=== PATIENT | female | born 1965 | race Caucasian/White ===

== ENCOUNTER 2020-08-01 12:23 | Emergency (ER) | payer OTHER, SELFPAY ==
[2020-08-01 12:26] VITALS: BP 139/87; PULSE 88; RESP 18; TEMP 36.7; O2SAT 99; BMI 32.3
--- NOTE | 2020-08-01 12:40 | DI.RAD.S_ITS ---
PROCEDURE: XR CHEST 2V INDICATIONS: chest tightness, cough TECHNIQUE: 2 views of the chest were acquired. COMPARISON: None. FINDINGS: Surgical changes and devices: None. Lungs and pleura: Lungs are clear. No pleural effusions or pneumothorax. Mediastinum: Mediastinal contours are normal. Heart size is normal. Bones and chest wall: No suspicious bony abnormalities. Soft tissues appear unremarkable. IMPRESSION: 1. No acute cardiopulmonary disease. Dictated by: Gagan Rios M.D. on 08/01/2020 at 12:12 Approved by: Gagan Rios M.D. on 08/01/2020 at 12:13
[2020-08-01 13:05] LABS: COVID19 -Nasal RAPID Negative (Negative)
[2020-08-01] MEDS: ALBUTEROL HFA PREPACK 1 BOX MISC (13:08)
--- NOTE | 2020-08-01 13:17 | ED.ASTHMA ---
HPI - Asthma <Ed [place] [facility] - Last Filed: 08/01/20 14:02> General Chief Complaint: Shortness of Breath/Dyspnea Stated Complaint: Asthma Time Seen by Provider: 08/01/20 12:24 Source: patient Mode of arrival: Ambulatory Limitations: no limitations History of Present Illness HPI Narrative: This is a 55 year female, nonsmoker, who has history of asthma and uses albuterol as needed presents to ED with chief complain of short of breath and difficulty breathe started yesterday. Patient is working at [employer] last 2 weeks. She was using a new mask yesterday and thinks this has causing increasing and short of breath. Patient reports lightheadedness, dizziness, headache which she usually gets from using albuterol. She also reports chest tightness and describes as a band around her chest. Patient reports frequent nonproductive cough and chest congestion. Patient denies sore throat, fever, rhinorrhea, or known exposure to person who has Covid 19. Patient denies hospitalization or intubation from asthma. Related Data Home Medications Medication Instructions Recorded Confirmed albuterol sulfate [Ventolin HFA] 1 puff INH #0 10/24/16 Previous Rx's Medication Instructions Recorded prednisone 40 mg PO DAILY 4 Days #8 tab 08/01/20 Allergies Allergy/AdvReac Type Severity Reaction Status Date / Time No Known Allergies Allergy Verified 08/01/20 12:47 Review of Systems <Ed Pope [facility] - Last Filed: 08/01/20 14:02> Review of Systems Narrative: General: Denies fever, chills, fatigue, malaise, sweats. HEENT: Denies sinus pain, ear pain, sore throat, difficulty swallowing, dizziness. Respiratory: See HPI Cardiovascular: HPI Gastrointestinal: Denies nausea, vomiting, abdominal pain, diarrhea, constipation, melena. : Denies dysuria, frequency, incontinence, hematuria, urinary retention. Musculoskeletal: Denies weakness, joint pain or bony pain. Skin: Denies rash, skin lesions, or other. Neurologic: Denies weakness, headache, numbness, change in speech, confusion, seizures, incoordination. Psychiatric: No concerning psychosocial issues. 12-point review of systems is negative except for those stated above. Patient History <Ed [place] [facility] Last Filed: 08/01/20 14:02> Medical History (Updated 08/01/20 @ 13:55 by ML Sebastian) Asthma (Acute) Surgical History (Updated 08/01/20 @ 13:21 by ML Sebastian) Hx of cholecystectomy (Acute) Social History Smoking Status: Never smoker Smoking Status: Never smoker Substance Use Type: does not use Exam <ML Sebastian - Last Filed: 08/01/20 14:02> Narrative Exam Narrative: GEN: Alert, oriented x 3, well appearing and nourished, and in no acute distress. Head: Normal cephalic, atraumatic. No scalp or temporal tenderness, palpable mass or rash. EYES: Pupils are equal, round, and reactive to light and accommodation. Extraocular muscles are intact bilaterally. There is no subconjunctival hemorrhage, exudate and sclera non-icteric. ENT: Hearing grossly intact. Nose without bleeding, purulent discharge or deviation. Mucous membrane moist, no mucosal lesion. Throat without erythema, tonsillar hypertrophy or exudate. Uvula in midline, airway patent. Neck: Trachea in midline. No JVD, non-tender without lymphadenopathy. No masses or thyroid megaly. Supple, non-tender and no meningeal signs. CARDIAC: Normal regular rate and rhythm without murmurs, gallops, or rubs. No chest wall tenderness. No peripheral edema, cyanosis or pallor. Capillary refill is less than 2 seconds. RESPIRATORY: Lungs are clear to auscultate bilaterally. No cough, wheezes, rales, or rhonchi. No stridor, respiratory distress, increase work of breathing, or accessary muscle used. ABD: Abdomen soft, nontender and non-distended. No guarding or rebound tenderness to palpate. Bowel sounds are normal in all 4 quadrants. There is no palpable masses or organomegaly. EXT: Full painless ROM of all extremities with no loss of sensation, strength, effusion or edema. SKIN: Warm, dry, normal color for patient. No erythema, lesions or rash over visible areas. BACK: Nontender without deformity or crepitance. No flank tenderness. NEUROLOGICAL: Alert and oriented to place, time and person. Sensation and motor function intact bilaterally. No facial droops, dysphasia. PSYCHIATRIC: Good judgement and reason, without hallucinations, abnormal affect or abnormal behaviors during the examination. Patient is not suicidal. Initial Vital Signs Initial Vital Signs: Vital Signs Temperature 98.1 F 08/01/20 12:26 Pulse Rate 88 08/01/20 12:26 Respiratory Rate 18 08/01/20 12:26 Blood Pressure 139/87 08/01/20 12:26 Pulse Oximetry 99 08/01/20 12:26 <Daniel Gilmore DO - Last Filed: 08/01/20 14:35> Initial Vital Signs Initial Vital Signs: Vital Signs Temperature 98.1 F 08/01/20 12:26 Pulse Rate 88 08/01/20 12:26 Respiratory Rate 18 08/01/20 12:26 Blood Pressure 139/87 08/01/20 12:26 Pulse Oximetry 99 08/01/20 12:26 Scores <ML Sebastian - Last Filed: 08/01/20 14:02> GCS Mikhail coma scale eye opening: Spontaneous Mikhail coma scale verbal response: Orientated [place] coma scale motor response: Obey commands [place] coma scale total score: 15 Course <ML Sebastian - Last Filed: 08/01/20 14:02> Orders Ordered: ED Orders 08/01/20 12:37 COVID19 -ED/INPAT/OR/L&D Stat 08/01/20 12:40 XR chest 2V Stat 08/01/20 12:43 EKG-12 Lead Stat Discontinued Medications Albuterol (Ventolin Hfa Prepack) 1 box MISC SEEINSTR ONE Stop: 08/01/20 12:41 Last Admin: 08/01/20 13:08 Dose: 1 box Documented by: JONNY Prednisone (Deltasone) 40 mg PO NOW ONE Stop: 08/01/20 13:47 Last Admin: 08/01/20 14:01 Dose: 40 mg Documented by: JONNY Vital Signs Vital signs: Vital Signs - 8 hr 08/01/20 12:26 08/01/20 13:58 08/01/20 14:09 Temperature 98.1 F Pulse Rate 88 88 82 Respiratory Rate 18 18 Blood Pressure 139/87 117/77 Pulse Oximetry 99 99 98 <Daniel Gilmore DO - Last Filed: 08/01/20 14:35> Orders Ordered: ED Orders 08/01/20 12:37 COVID19 -ED/INPAT/OR/L&D Stat 08/01/20 12:40 XR chest 2V Stat 08/01/20 12:43 EKG-12 Lead Stat Discontinued Medications Albuterol (Ventolin Hfa Prepack) 1 box MISC SEEINSTR ONE Stop: 08/01/20 12:41 Last Admin: 08/01/20 13:08 Dose: 1 box Documented by: JONNY Prednisone (Deltasone) 40 mg PO NOW ONE Stop: 08/01/20 13:47 Last Admin: 08/01/20 14:01 Dose: 40 mg Documented by: JONNY Vital Signs Vital signs: Vital Signs - 8 hr 08/01/20 12:26 08/01/20 13:58 08/01/20 14:09 Temperature 98.1 F Pulse Rate 88 88 82 Respiratory Rate 18 18 Blood Pressure 139/87 117/77 Pulse Oximetry 99 99 98 MDM - Asthma <ML Sebastian - Last Filed: 08/01/20 14:02> Differential Diagnosis Differential diagnosis: Likely Acute exacerbation (Covid 19, pneumonia) Medical Records Attestation: I reviewed the patient's medical records. Lab Data Attestation: I reviewed the patient's lab results. Labs: Lab Results 08/01/20 Range/Units 12:37 COVID-19 PCR Negative (Negative) Imaging Data Chest x-ray: Radiologist's Impression: [place] [address] XRay Report Signed Patient: Jerome De La Cruz LMR#: [id number] : 1965Acct:[id number] Age/Sex: 55 / FDate of Service: 08/01/20 Loc: ED Accession Number: [id number] Procedure: XR chest 2V Ordering Provider: Ed Pope PROCEDURE: XR CHEST 2V INDICATIONS: chest tightness, cough TECHNIQUE: 2 views of the chest were acquired. COMPARISON: None. FINDINGS: Surgical changes and devices: None. Lungs and pleura: Lungs are clear. No pleural effusions or pneumothorax. Mediastinum: Mediastinal contours are normal. Heart size is normal. Bones and chest wall: No suspicious bony abnormalities. Soft tissues appear unremarkable. IMPRESSION: 1. No acute cardiopulmonary disease. Dictated by: Gagan Rios M.D. on 08/01/2020 at 12:12 Approved by: Gagan Rios M.D. on 08/01/2020 at 12:13 ECG Data Attestation: I personally reviewed and interpreted this ECG as follows: Interpretation: Sinus rhythm rate at 84. Left dominant axis. ID interval 150, QRS duration 82, QT/QTC 390/460. No acute ST changes MDM Narrative Medical decision making narrative: This is a 55 year female who presents to ED who has history of asthma with chief complain of short of breath, chest tightness, dizziness, headache. Patient had changed to a new mask at work at [employer] yesterday and thinks this has exacerbated her symptoms. Patient had used albuterol without much improvement. No other constitutional symptoms. EKG was normal sinus rhythm. Physical exam is unremarkable. COvid test was negative. Chest x-ray was unremarkable. Patient medicated with albuterol inhaler with spacer which she found to be very helpful. Patient was medicated with 1st dose of prednisone 40 mg in ED and discharged to home with 4 day course. Work off note provided for a day. Return precautions were discussed with patient and patient verbalized understanding and agreement with the treatment plan. <Daniel Gilmore DO - Last Filed: 08/01/20 14:35> Lab Data Labs: Lab Results 08/01/20 Range/Units 12:37 COVID-19 PCR Negative (Negative) Discharge Plan Departure Patient Disposition: Home Clinical Impression: Asthma with exacerbation Qualifiers: Asthma severity: unspecified severity Asthma persistence: unspecified Qualified Code(s): J45.901 - Unspecified asthma with (acute) exacerbation Discharge Date/Time: 08/01/20 14:10 Instructions: DI for Asthma -- Adult Activity Restrictions/Additional Instructions: You have been diagnosed with [asthma exacerbation. Covid test was negative. Chest x-ray test without acute findings. EKG is normal.]. What to do: *Take your medications as directed. Continue to use albuterol inhaler with a spacer with her symptoms. You can use 2 puffs every 4 hours as needed for chest tightness, cough, short of breath. First dose of steroids given in ED. please continue with this daily for next 4 days. Prednisone have been transmitted to [facility] in [facility]. *Follow up with your primary care provider in 2-3 days, call for an appointment. Let them know you were seen in the ED and that we asked you to be seen in follow up. *Return to ED if you have any new, worsening, or concerning symptoms, such as [worsening symptoms, chest pain, breathing difficulty, fever, or any acute concerns]. Prescriptions: New prednisone 20 mg tablet 40 mg PO DAILY 4 Days Qty: 8 RF: 0 No Action albuterol sulfate [Ventolin HFA] 90 MCG/PUFF HFA aerosol inhaler 1 puff INH Qty: 0 RF: 0 Referrals: [facility] [Outside] Stand Alone Forms: Work Release Note <aDniel Gilmore, DO - Last Filed: 08/01/20 14:35> Cosign ED Attending Cosignature Attestation: Dr Gilmore Co-Sign Statement: I was available for consultation during this patient's emergency department visit. This chart is signed by myself for administrative purposes only. I did not have direct contact with this patient during this visit. They were seen independently by the APC.
[2020-08-01 13:58] VITALS: PULSE 88; O2SAT 99
[2020-08-01] MEDS: predniSONE 20 MG TABLET 40 MG PO (14:01)
[2020-08-01 14:09] VITALS: BP 117/77; PULSE 82; RESP 18; O2SAT 98
== END 2020-08-01 14:10 | disposition home or self-care (01) ==
PROVIDERS: Emergency Provider Nurse Practitioner Family
DX: J45.901 Unspecified asthma with (acute) exacerbation (principal); R05 Cough; R07.89 Other chest pain; R51.9 Headache, unspecified
CPT/HCPCS: 71046; 87635; 93005; 94640; 99283; 99284

== ENCOUNTER → 2021-01-03 09:11 | Outpatient (CLI) | payer OTHER, SELFPAY ==
[2021-01-03] MEDS: COVID-19 VACC, Ad26(JANSSEN)/PF 0.5 ML IM (09:28)
== END ==
PROVIDERS: PCP Registered Nurse Diabetes Educator; Visit Provider Internal Medicine
DX: Z23 Encounter for immunization (principal)
CPT/HCPCS: 0031A; 91303

== ENCOUNTER → 2022-05-03 09:53 | Outpatient (CLI) | payer OTHER, SELFPAY ==
--- NOTE | 2022-05-03 09:54 | DI.MG.S_ITS ---
BILATERAL DIGITAL SCREENING MAMMOGRAM 3D/2D WITH CAD: 05/03/2022 CLINICAL: Routine screening. Baseline exam. No prior exams were available for comparison. The tissue of both breasts is heterogeneously dense. This may lower the sensitivity of mammography. Current study was also evaluated with a Computer Aided Detection (CAD) system. No significant masses, calcifications, or other findings are seen in either breast. IMPRESSION: NEGATIVE There is no mammographic evidence of malignancy. A 1 year screening mammogram is recommended. Based on the Tyrer Cuzick model (a risk assessment model) the patient's lifetime risk is 11.2% and her 10 year risk is 3.4%. According to the ACR, ACS, and NCCN guidelines, an annual breast MRI exam along with mammogram is recommended if the patient's lifetime risk is 20% or greater. This exam was interpreted at Station ID: [id number]. NOTE: For mammograms, a report in lay terms will be sent to the patient. Approximately 15% of breast malignancies will not be visualized mammographically. In the management of a palpable breast mass, a negative mammogram must not discourage biopsy of a clinically suspicious lesion. Electronically Signed By: Tom krueger/blayne:05/03/2022 12:29:31 letter sent: Normal Exam ACR BI-RADS Category 1: Negative [id number]
== END ==
PROVIDERS: PCP Registered Nurse Diabetes Educator; Referring Provider Nurse Practitioner; Visit Provider Nurse Practitioner
DX: Z12.31 Encounter for screening mammogram for malignant neoplasm of breast (principal)
CPT/HCPCS: 77063; 77067

== ENCOUNTER 2023-01-06 20:22 | Emergency (ER) | payer OTHER, SELFPAY ==
[2023-01-06 20:28] VITALS: BP 140/87; PULSE 79; RESP 20; TEMP 36.1; O2SAT 100; BMI 26.6
[2023-01-06] MEDS: EPINEPHrine 1 MG/ML 0.5 MG IM (20:40)
[2023-01-06] MEDS: methylPREDNISolone 125 MG/2 ML VIAL IV (20:45)
[2023-01-06] MEDS: FAMOTIDINE 20 MG/2 ML VIAL IV (20:47)
[2023-01-06 20:53] VITALS: BP 146/88; PULSE 73; RESP 27; O2SAT 100
[2023-01-06 21:00] VITALS: BP 144/74; PULSE 80; RESP 29; O2SAT 99
[2023-01-06 21:30] VITALS: BP 111/71; PULSE 75; RESP 26; O2SAT 100
[2023-01-06 22:00] VITALS: BP 117/68; PULSE 72; RESP 22; O2SAT 100
[2023-01-06 22:30] VITALS: BP 120/74; PULSE 70; RESP 19; O2SAT 100
--- NOTE | 2023-01-06 22:46 | ED.ALLEREA ---
HPI - Allergic Reaction General Chief complaint: Allergic Reaction Stated complaint: allergic reaction to shrim/ hives Time Seen by Provider: 01/06/23 20:32 History of Present Illness HPI narrative: Patient 57-year-old female presents today with difficulty speaking. She reports that she is been eating a lot of shrimp lately she had tripped around 2:00 p.m.. She was driving started noticing her face is getting itchy and red started saying that the inside of her mouth felt funny and that now her voice is a little bit hoarse. No prior history of anaphylaxis to shellfish. She took Benadryl 50 mg prior to arrival. Related Data Home Medications Medication Instructions Recorded Confirmed albuterol sulfate 90 mcg/actuation 1 puff INH ##0 10/24/16 10/18/20 aerosol inhaler (Ventolin HFA) estradiol-testosterone IM 02/06/22 02/06/22 naltrexone [Trexan (naltrexone PO 02/06/22 02/06/22 HCl)] progesterone micronized 200 mg 200 mg PO BEDTIME 02/06/22 02/06/22 capsule Previous Rx's Medication Instructions Recorded fluticasone 250 mcg-salmeterol 50 1 inh inhalation Q12H #60 ea 10/18/20 mcg/dose blistr powdr for inhalation (Advair Diskus) metronidazole 1 % topical gel 1 applic topical DAILY #60 grams 10/18/20 (Metrogel) epinephrine 0.3 mg/0.3 mL 0.3 mg (0.3 mL) IM Q5-15M PRN 01/06/23 injection, auto-injector anaphylaxis #2 ea Allergies Allergy/AdvReac Type Severity Reaction Status Date / Time No Known Allergies Allergy Verified 01/06/23 20:30 Review of Systems Review of Systems ROS Unobtainable: All systems reviewed & are unremarkable except as noted in HPI and below Patient History Medical History Asthma History of thyroid nodule Mild persistent asthma Rosacea Surgical History Hx of cholecystectomy Social History Smoking Status: Never smoker Smoking Status: Never smoker Substance Use Type: does not use Exam Initial Vital Signs Initial Vital Signs: Vital Signs Temperature 97 F L 01/06/23 20:28 Pulse Rate 79 01/06/23 20:28 Respiratory Rate 20 01/06/23 20:28 Blood Pressure 140/87 01/06/23 20:28 Pulse Oximetry 100 01/06/23 20:28 Oxygen Delivery Method Room Air 01/06/23 20:28 GENERAL: Alert 57-year-old female and in no acute distress. HEENT: Head atraumatic,EOMI, pupils reactive, managing secretions slightly muffled voice, no significant tongue swelling uvula swelling or lip swelling. CARDIOVASCULAR: Regular rate and rhythm without murmurs, rubs or gallops. RESPIRATORY: Breath sounds equal bilaterally, no wheezes rales or rhonchi. ABDOMEN: Soft, nontender. Normoactive bowel sounds all 4 quadrants. No guarding or rebound. EXTREMITIES: Normal range of motion, no clubbing or edema. Neurovascularly intact NEUROLOGICAL: Alert and oriented x4. SKIN: Slight hives around neck face is mildly erythematous Course Orders Ordered: Discontinued Medications Epinephrine HCl (Epinephrine 1 Mg/Ml) 0.5 mg IM NOW ONE Stop: 01/06/23 20:33 Last Admin: 01/06/23 20:40 Dose: 0.5 mg Documented By: RELL Famotidine (Famotidine 20 Mg/2 Ml Vial) 20 mg IV NOW MAYA Last Admin: 01/06/23 20:47 Dose: 20 mg Documented By: RELL Methylprednisolone (Methylprednisolone 125 Mg/2 Ml Vial) 125 mg IV NOW ONE Stop: 01/06/23 20:33 Last Admin: 01/06/23 20:45 Dose: 125 mg Documented By: RELL Vital Signs Vital signs: Vital Signs - 8 hr 01/06/23 22:00 01/06/23 22:00 01/06/23 22:30 Pulse Rate 72 Respiratory Rate 22 Blood Pressure 117/68 120/74 Pulse Oximetry 100 01/06/23 22:30 Pulse Rate 70 Respiratory Rate 19 Blood Pressure Pulse Oximetry 100 MDM - Allergic Reaction MDM Narrative Medical decision making narrative: Patient 57-year-old female presents today with difficulty swallowing and breathing after shrimp. Even though she is been eating a lot from she is never had this reaction. She is given anaphylaxis medication including epinephrine Solu-Medrol and Pepcid. She is monitored for about 2-1/2 hours she is significant improvement. She ambulates to the restroom. I have re-evaluated her speaking and speech is much clear. Rashes also improved. At this time she feels better and ready able to go home. We did talk about how she should steer clear of all shellfish. Discharge Plan Departure Patient Disposition: Home Clinical Impression: Anaphylaxis Instructions: DI for Anaphylaxis Activity Restrictions/Additional Instructions: *You have been diagnosed with allergic reaction to shrimp *What to do: Unfortunately I recommend that you do not eat shrimp, perhaps no shellfish either, any longer *Continue to take medications as directed Epinephrine pen as needed--> SENT TO [facility] Benadryl 25-50 mg every 6 hours if needed for itching or rash *Follow up with your primary care provider in 2-3 days or call [phone] *Return to ER if you should have increased difficulty breathing,rash [or] any new, worsening or concerning symptoms Prescriptions: New epinephrine 0.3 mg/0.3 mL auto-injector 0.3 mg IM Q5-15M PRN (Reason: anaphylaxis) Qty: 2 0RF Rx Instructions: do not exceed 3 doses per episode No Action albuterol sulfate [Ventolin HFA] 90 MCG/PUFF HFA aerosol inhaler 1 puff INH Qty: 0 fluticasone propion-salmeterol [Advair Diskus] 250-50 mcg/dose blister with device 1 inh inhalation Q12H Qty: 60 5RF metronidazole [Metrogel] 1 % gel 1 applic topical DAILY Qty: 60 2RF progesterone micronized 200 mg capsule 200 mg PO BEDTIME naltrexone [Trexan (naltrexone HCl)] PO estradiol-testosterone IM Referrals: Jerome Flores ARNP [Primary Care Provider] - Stand Alone Forms: Patient Portal/API
== END 2023-01-06 23:09 | disposition home or self-care (01) ==
PROVIDERS: Emergency Provider Emergency Medicine; PCP Registered Nurse Diabetes Educator
DX: T78.02XA Anaphylactic reaction due to shellfish (crustaceans), initial encounter (principal)
CPT/HCPCS: 96372; 96374; 96375; 99284; J0171; J2930